=== PATIENT | female | born 1950 | race Caucasian/White ===

== ENCOUNTER 2019-06-08 17:34 | Emergency (ER) | payer OTHER ==
[2019-06-08 18:16] LABS: Absolute Lymphocytes (CBC) 3.3 K/uL (0.7-4.9); Hematocrit 33.7 % (36.0-45.0); Lymphocytes % 27.8 % (15.3-44.8); MPV 8.2 fL (7.6-11.3); RBC Red Blood Cell Count 3.72 M/uL (3.86-4.86)
[2019-06-08 18:30] LABS: Potassium 4.6 mmol/L (3.5-5.1)
--- NOTE | 2019-06-08 19:26 | ER ---
Nurse's Notes [facility] Name: Dilma Patel Age: 68 yrs Sex: Female : 1950 Arrival Date: 06/08/2019 Time: 17:38 Bed 27 Private MD: Rashad Amador T Diagnosis: Abnormal finding of blood chemistry, unspecified Presentation: 06/08 17:40 Presenting complaint: Patient states: She had labs drawn today and her doctor called aj1 and said that her potassium level was over 5, and to come to the ER. Also said that she needs to see a kidney specialist. Denies pain. Patient reports feeling well. Transition of care: patient was not received from another setting of care. Onset of symptoms was June 08, 2019. Risk Assessment: Do you want to hurt yourself or someone else? Patient reports no desire to harm self or others. Initial Sepsis Screen: Does the patient meet any 2 criteria? No. Patient's initial sepsis screen is negative. Does the patient have a suspected source of infection? No. Patient's initial sepsis screen is negative. Care prior to arrival: None. 17:40 Method Of Arrival: Wheelchair aj 17:40 Acuity: KAYLAN 2 aj1 Triage Assessment: 17:42 General: Appears in no apparent distress. comfortable, Behavior is calm, cooperative, aj1 appropriate for age. Pain: Denies pain. Neuro: Level of Consciousness is awake, alert, obeys commands. Cardiovascular: Patient's skin is warm and dry. Respiratory: Airway is patent Respiratory effort is even, unlabored, Respiratory pattern is regular, symmetrical. Historical: - Allergies: 17:42 [place]; aj1 - PMHx: 17:42 Asthma; COPD; CVA; Diabetes - NIDDM; Hypertension; Lung Cancer; aj1 - PSHx: 17:42 Lobectomy; aj1 - Immunization history:: Flu vaccine is not up to date. - Social history:: Smoking status: Patient/guardian denies using tobacco. - Ebola Screening: : Patient denies travel to an Ebola-affected area in the 21 days before illness onset. Screenin:00 Abuse screen: Denies threats or abuse. Nutritional screening: No deficits noted. tr5 Tuberculosis screening: No symptoms or risk factors identified. Fall Risk None identified. Assessment: 18:00 General: Appears comfortable, Behavior is calm, cooperative, appropriate for age. Pain: tr5 Denies pain. Neuro: Level of Consciousness is awake, alert, Oriented to person, place, time, [place] are equal bilaterally Moves all extremities. Cardiovascular: Heart tones present Capillary refill < 3 seconds Pulses are all present. Edema is absent. Respiratory: Airway is patent Respiratory effort is even, unlabored, Respiratory pattern is regular, symmetrical. GI: No signs and/or symptoms were reported involving the gastrointestinal system. : No signs and/or symptoms were reported regarding the genitourinary system. EENT: No signs and/or symptoms were reported regarding the EENT system. Derm: No signs and/or symptoms reported regarding the dermatologic system. Musculoskeletal: Capillary refill < 3 seconds, Range of motion: intact in all extremities. 19:00 Reassessment: Patient appears in no apparent distress at this time. Patient and/or tr5 family updated on plan of care and expected duration. Pain level reassessed. Patient is alert, oriented x 3, equal unlabored respirations, skin warm/dry/pink. Vital Signs: 17:42 BP 152 / 85; Pulse 93; Resp 20; Temp 98.4; Pulse Ox 96% on R/A; Weight 101.6 kg (R); aj1 Height 5 ft. 0 in. (152.40 cm) (R); Pain 0/10; 17:42 Body Mass Index 43.75 (101.60 kg, 152.40 cm) aj1 ED Course: 17:38 Patient arrived in ED. mr 17:38 Rashad Amador MD is Private Physician. mr 17:41 Triage completed. aj1 17:42 Arm band placed on Patient placed in an exam room. aj1 17:49 Arnel Mackenzie MD is Attending Physician. gs 18:00 Placed in gown. Bed in low position. Side rails up X 1. tr5 18:06 Estevan Camejo, RAMIREZ is Primary Nurse. tr5 18:06 Inserted saline lock: 22 gauge in left forearm, using aseptic technique. lt1 18:06 Basic Metabolic Panel Sent. lt1 18:06 CBC with Diff Sent. lt1 18:34 EKG done, by ED staff. lt1 19:42 No provider procedures requiring assistance completed. Patient did not have IV access tr5 during this emergency room visit. Administered Medications: No medications were administered Outcome: 19:25 Discharge ordered by . donnie 19:42 Discharged to home ambulatory. tr5 19:42 Condition: stable 19:42 Discharge instructions given to patient, Instructed on discharge instructions, follow up and referral plans. Demonstrated understanding of instructions, follow-up care. 19:43 Patient left the ED. tr5 Signatures: Caroline Cyr RN RN aj1 Dilma Brock Gregory, MD MD [facility] Estevan Camejo RN RN tr5
--- NOTE | 2019-06-08 19:26 | EDPHYS ---
Physician Documentation [facility] Name: Dilma Patel Age: 68 yrs Sex: Female : 1950 Arrival Date: 06/08/2019 Time: 17:38 Bed 27 Private MD: Rashad Amador T ED Physician Arnel Mackenzie HPI: 06/08 18:56 This 68 yrs old Female presents to ER via Wheelchair with complaints of gs Abnormal Lab Results. 18:56 concern may have hyperkalemia abnl outside labs. Onset: The symptoms/episode gs began/occurred today. Severity of symptoms: At their worst the symptoms were mild in the emergency department the symptoms are unchanged. The patient has not experienced similar symptoms in the past. Historical: - Allergies: 17:42 [place]; aj1 - PMHx: 17:42 Asthma; COPD; CVA; Diabetes - NIDDM; Hypertension; Lung Cancer; aj1 - PSHx: 17:42 Lobectomy; aj1 - Immunization history:: Flu vaccine is not up to date. - Social history:: Smoking status: Patient/guardian denies using tobacco. - Ebola Screening: : Patient denies travel to an Ebola-affected area in the 21 days before illness onset. ROS: 18:56 All other systems are negative. gs Exam: 18:56 Head/Face: Normocephalic, atraumatic. Eyes: Pupils equal round and reactive to light, gs extra-ocular motions intact. Lids and lashes normal. Conjunctiva and sclera are non-icteric and not injected. Cornea within normal limits. Periorbital areas with no swelling, redness, or edema. ENT: Nares patent. No nasal discharge, no septal abnormalities noted. Tympanic membranes are normal and external auditory canals are clear. Oropharynx with no redness, swelling, or masses, exudates, or evidence of obstruction, uvula midline. Mucous membranes moist. Neck: Trachea midline, no thyromegaly or masses palpated, and no cervical lymphadenopathy. Supple, full range of motion without nuchal rigidity, or vertebral point tenderness. No Meningismus. Chest/axilla: Normal chest wall appearance and motion. Nontender with no deformity. No lesions are appreciated. Cardiovascular: Regular rate and rhythm with a normal S1 and S2. No gallops, murmurs, or rubs. Normal PMI, no JVD. No pulse deficits. Respiratory: Lungs have equal breath sounds bilaterally, clear to auscultation and percussion. No rales, rhonchi or wheezes noted. No increased work of breathing, no retractions or nasal flaring. Abdomen/GI: Soft, non-tender, with normal bowel sounds. No distension or tympany. No guarding or rebound. No evidence of tenderness throughout. Back: No spinal tenderness. No costovertebral tenderness. Full range of motion. Skin: Warm, dry with normal turgor. Normal color with no rashes, no lesions, and no evidence of cellulitis. MS/ Extremity: Pulses equal, no cyanosis. Neurovascular intact. Full, normal range of motion. Neuro: Awake and alert, GCS 15, oriented to person, place, time, and situation. Cranial nerves II-XII grossly intact. Motor strength 5/5 in all extremities. Sensory grossly intact. Cerebellar exam normal. Normal gait. 18:56 Constitutional: The patient appears alert, awake. 18:56 ECG was reviewed by the Attending Physician. Vital Signs: 17:42 BP 152 / 85; Pulse 93; Resp 20; Temp 98.4; Pulse Ox 96% on R/A; Weight 101.6 kg (R); aj1 Height 5 ft. 0 in. (152.40 cm) (R); Pain 0/10; 17:42 Body Mass Index 43.75 (101.60 kg, 152.40 cm) aj1 MDM: 18:09 Patient medically screened. gs 19:24 Data reviewed: vital signs, nurses notes, lab test result(s), EKG. Counseling: I had a gs detailed discussion with the patient and/or guardian regarding: the historical points, exam findings, and any diagnostic results supporting the discharge/admit diagnosis, the need for outpatient follow up. 06/08 17:49 Order name: CBC with Diff; Complete Time: 18:56 gs 06/08 17:49 Order name: Basic Metabolic Panel; Complete Time: 18:56 gs 06/08 17:49 Order name: EKG; Complete Time: 17:50 gs 06/08 17:49 Order name: EKG - Nurse/Tech; Complete Time: 18:34 gs EC:24 Rate is 87 beats/min. Rhythm is regular. NV interval is prolonged. T waves are gs Inverted. T waves are Flattened. Clinical impression: Abnormal EKG without significant change. Interpreted by me. Administered Medications: No medications were administered Disposition: 06/08/19 19:25 Discharged to Home. Impression: Abnormal finding of blood chemistry, unspecified. - Condition is Stable. - Medication Reconciliation Form, Thank You Letter, Antibiotic Education, Prescription Opioid Use form. - Follow up: Private Physician; When: 1 - 2 days; Reason: Re-evaluation by your physician. Signatures: Dispatcher [employer] Caroline Carty RN RN aj1 Arnel Mackenzie MD MD gs Rodriguez, Tommie, RN RN tr5 Corrections: (The following items were deleted from the chart) 19:43 19:25 06/08/2019 19:25 Discharged to Home. Impression: Abnormal finding of blood tr5 chemistry, unspecified. Condition is Stable. Forms are Medication Reconciliation Form, Thank You Letter, Antibiotic Education, Prescription Opioid Use. Follow up: Private Physician; When: 1 - 2 days; Reason: Re-evaluation by your physician. gs
[2019-06-08 20:01] VITALS: BP 152/85; TEMP 98.4; O2SAT 96
--- NOTE | 2019-06-09 11:39 | EKG ---
Test Date: 2019-06-08 Test Time: 18:26:51 Print Finishing Worker: MARINA MEASUREMENT RESULTS: Intervals: Rate: 87 TX: 206 QRSD: 90 QT: 374 QTc: 450 [place]: P: 46 TX: 206 QRS: 22 T: 78 INTERPRETIVE STATEMENTS: Normal sinus rhythm Cannot rule out Anterior infarct, age undetermined Abnormal ECG Compared to ECG 06/21/2017 18:59:00 no significant change from previous ECG Electronically Signed On 06-09-19 11:38:52 CDT by Celestino Brown
== END 2019-06-08 19:43 | disposition home or self-care (01) ==
LOC: ER 17:34
DX: R79.9 Abnormal finding of blood chemistry, unspecified (principal); I10 Essential (primary) hypertension; Z85.118 Personal history of other malignant neoplasm of bronchus and lung; Z91.018 Allergy to other foods
CPT/HCPCS: 36415; 80048; 85025; 93005; 99283